=== PATIENT | female | born 1940 | race Caucasian/White ===

== ENCOUNTER 2022-02-13 12:19 | Emergency (ER) | payer MEDICARE, SELFPAY ==
--- NOTE | ~2022-02-13 | XR_ITS ---
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 Comparison: None available. RESULT: Lines, tubes, and devices: None. Lungs and pleura: Mild reticulonodular opacities with cuffing. Cardiomediastinal silhouette: Stable. Moderate hiatal hernia. Calcified granulomas. Other: No acute osseous or upper abdominal finding. IMPRESSION: Pulmonary opacities may represent bronchiolitis, as can be seen with atypical infection, asthma, aspi ration, and small airways disease. Reviewed, dictated and finalized at location K. STOS REMOVAL SUPERVISOR IMPRESSION: Pulmonary opacities may represent bronchiolitis, as can be seen with atypical i nfection, asthma, aspiration, and small airways disease.
[2022-02-13 12:50] VITALS: BP 144/59; PULSE 79; RESP 20; TEMP 37.1; O2SAT 97
--- NOTE | 2022-02-13 14:28 | ED.GENADULT ---
HPI - General Adult General Chief complaint: Upper Respiratory Infection Stated complaint: Cough Source: patient Mode of arrival: ambulatory Limitations: no limitations History of Present Illness HPI narrative: Patient presents for evaluation of cough since last Sunday. She denies any fever, chills, nausea, vomiting, diarrhea, body aches, shortness of breath or chest pain. Her was recently diagnosed with bronchitis. No personal history of COVID. She does not smoke. No additional complaints or concerns. Related Data Home Medications Medication Instructions Recorded Confirmed acetaminophen 500 mg capsule 500 mg PO Q6H PRN 10/28/21 11/17/21 budesonide-formoterol HFA 80 2 puff inhalation Q12H 10/28/21 11/17/21 mcg-4.5 mcg/actuation aerosol inhaler (Symbicort) cholecalciferol (vitamin D3) 50 50 mcg PO DAILY 10/28/21 11/17/21 mcg (2,000 unit) capsule glucosamine sulfate 2KCl 1,000 mg 1,000 mg PO BID 10/28/21 11/17/21 tablet (Glucosamine Relief) multivitamin-ferrous 1 tablet PO DAILY 10/28/21 11/17/21 fumarate-folic acid 18 mg-400 mcg tablet (Centrum) omega 8-wtb-axz-fish oil 300 1 cap PO DAILY 10/28/21 11/17/21 mg-1,000 mg capsule (Fish Oil) pravastatin 20 mg tablet 20 mg PO DAILY 10/28/21 11/17/21 famotidine 20 mg tablet 20 mg PO DAILY 11/08/21 11/17/21 Allergies Allergy/AdvReac Type Severity Reaction Status Date / Time Penicillins Allergy Unknown Hives Verified 11/17/21 14:38 Review of Systems Review of Systems: CONSTITUTIONAL: Denies fever, chills, or sweats. EYES: Denies visual changes, redness, or discharge. ENT: Denies rhinorrhea, congestion, sore throat, or otalgia. CARDIOVASCULAR: Denies chest pain, palpitations, or edema. RESPIRATORY: Reports cough. Denies shortness of breath. GASTROINTESTINAL: Denies abdominal pain, nausea, vomiting, or diarrhea. GENITOURINARY: Denies dysuria or hematuria. SKIN: Denies rash or itching. MUSCULOSKELETAL: Denies back pain, joint pain, or myalgia. NEUROLOGIC: Denies headache, numbness, dizziness, or weakness. PSYCHIATRIC: Denies anxiety or depression. [facility] Past Medical History Medical History Arthritis Back problem Chronic bronchitis GERD (gastroesophageal reflux disease) Heel spur History of hypertension History of stress test (~10/2021) Hyperlipemia Kidney stones Spinal stenosis at L4-L5 level Trochanteric bursitis, left hip Surgical History Surgical History H/O cataract extraction H/O right knee surgery History of appendectomy History of back surgery History of bunionectomy History of carpal tunnel release History of dental surgery Family History Family History Father Myocardial infarction Mother Arthritis Social History Social History Smoking status: Never smoker Alcohol intake: never Substance use: never Substance use type: does not use Living arrangements: with family Gender identity (if verbalized by the patient): Female Sexual Orientation (if Verbalized by the Patient): Straight or Heterosexual Spiritual care concerns: No Exam Narrative: GENERAL: Well-appearing, well-nourished, and in no acute distress. HEAD: Normocephalic, atraumatic. EYES: PERRLA and EOMI. ENT: Nares clear, no rhinorrhea or epistaxis. Mucous membranes moist. Oropharynx without tonsillar hypertrophy exudate or other lesions. Bilateral TMs pearly hannah nonbulging NECK: Supple. No adenopathy or masses. No carotid bruits or JVD CHEST: Rales noted and right lung davila posteriorly. Cough present on exam. HEART: Regular rate and rhythm. No murmur heard. Normal peripheral pulses. ABDOMEN: Soft, nontender, nondistended, normal active bowel sounds. EXTREMITIES: Normal range
== END 2022-02-13 15:11 | disposition home or self-care (01) ==
PROVIDERS: Emergency Provider Nurse Practitioner; PCP Family Medicine
DX: J18.9 Pneumonia, unspecified organism (principal); Z20.822 Contact with and (suspected) exposure to COVID-19; M19.90 Unspecified osteoarthritis, unspecified site; K21.9 Gastro-esophageal reflux disease without esophagitis; I10 Essential (primary) hypertension; E78.5 Hyperlipidemia, unspecified; M48.061 Spinal stenosis, lumbar region without neurogenic claudication
CPT/HCPCS: 71046; 87426; 87804; 99213; C9803; G0463

== ENCOUNTER 2022-09-11 12:17 | Outpatient (CLI) | payer MEDICARE, SELFPAY ==
[2022-09-11 13:07] LABS: Hematocrit 39.8 % (37.0-47.0); Hemoglobin 12.6 g/dL (12.0-15.0)
[2022-09-11 13:19] LABS: Albumin Level 4.2 g/dL (3.5-5.1); Estimated Glomerular Filt Rate > 60; Glucose 90 mg/dL (65-110)
== END 2022-09-11 12:18 | disposition home or self-care (01) ==
PROVIDERS: PCP Family Medicine; Visit Provider Orthopaedic Surgery
DX: K21.9 Gastro-esophageal reflux disease without esophagitis (principal); M17.12 Unilateral primary osteoarthritis, left knee; E78.5 Hyperlipidemia, unspecified; Z86.79 Personal history of other diseases of the circulatory system
CPT/HCPCS: 36415; 82040; 82565; 82947; 85014; 85018

== ENCOUNTER 2022-10-25 11:50 | Outpatient (CLI) | payer MEDICARE, SELFPAY ==
[2022-10-25 13:03] LABS: Basophils Absolute Auto 0.1 K/mm3 (0.0-0.1); Basophils Percent Auto 0.7 % (0.2-1.2); Eosinophils Absolute Auto 0.2 K/mm3 (0-0.3); Eosinophils Percent Auto 2.5 % (0-4.4); Hematocrit 40.4 % (37.0-47.0); Hemoglobin 12.8 g/dL (12.0-15.0); Immature Granulocyte Absolute 0.02 K/mm3 (0.00-0.031); Immature Granulocyte Percent A 0.3 % (0-0.5); Lymphocytes Absolute Auto 2.02 K/mm3 (0.9-3.2); Lymphocytes Percent Auto 26.8 % (18.3-44.2); Mean Corpuscular HGB Conc 31.7 g/dl (32-36); Mean Corpuscular Hemoglobin 31.1 pg (26-34); Mean Corpuscular Volume 98.3 fl (80-100); Mean Platelet Volume 10.1 fl (7.4-10.4); Monocytes Absolute Auto 0.7 K/mm3 (0.1-0.6); Monocytes Percent Auto 8.9 % (2.6-8.5); Neutrophils Absolute Auto 4.6 K/mm3 (1.3-6.7); Neutrophils Percent Auto 60.8 % (45.5-73.1); Platelet Count Result 351 k/mm3 (150-375); Red Blood Count 4.11 M/mm3 (4.2-5.4); Red Cell Distribution Width 12.9 % (11.5-14.5); White Blood Count 7.6 K/mm3 (4.5-10.0)
[2022-10-25 13:11] LABS: Albumin Level 4.1 g/dL (3.5-5.1); Estimated Glomerular Filt Rate > 60; Glucose 87 mg/dL (65-110)
[2022-10-25 13:13] LABS: Urine Cotinine NEGATIVE
[2022-10-25 13:16] LABS: Hemoglobin A1C 5.7 % (<5.7)
== END 2022-10-25 11:51 | disposition home or self-care (01) ==
LOC: ANHSURGERY 11:54
PROVIDERS: PCP Family Medicine; Visit Provider Orthopaedic Surgery
DX: M17.12 Unilateral primary osteoarthritis, left knee (principal); Z01.818 Encounter for other preprocedural examination
CPT/HCPCS: 80307; 82040; 82565; 82947; 83036; 85025; 87081

== ENCOUNTER 2022-11-20 01:08 | Day surgery (SDC) | payer MEDICARE, SELFPAY ==
--- NOTE | 2022-10-25 11:51 | PC.NURSE ---
PRE-OP INSTRUCTIONS, PLEASE READ CAREFULLY Report to the Outpatient Waiting Room, entrance under the green pavilion located off [facility], at time _1000_ on date _11/20/22_. Planned Procedure Time: _1200_. PACK A SMALL OVERNIGHT BAG AND LEAVE IN THE CAR ALONG WITH YOUR WALKER Time changes happen often and if your time is changed the preop area will call you the afternoon before. - You and your visitor will be asked to self-screen and do not enter if you have any COVID symptoms. - A mask is optional within the hospital at this time. -VISITING HOURS 8AM-8PM Patients may have clear liquids (water, carbonated beverages, clear teas, apple juice) until 3 hours prior to surgery (0900 AM) with a maximum of 20 ounces. - No food from midnight until time of surgery Take the following medications with a SIP of water the morning of surgery: _INHALER IF NEEDED_ DO NOT STOP ANY OF YOUR OTHER PRESCRIPTION MEDICATIONS PRIOR TO SURGERY ?EXCEPT THE FOLLOWING Medications to discontinue per ANESTHESIA - _MULTIVITAMINS, SUPPLEMENTS 3 DAYS PRIOR TO SURGERY, Date to take last dose 11/16/22_ Please no make-up, nail spanish, hairspray, perfume, deodorant, or body powder the day of surgery. No jewelry (including any body piercings) or valuables the day of surgery, leave them at home. Please take a shower or bath the night before, or the morning of, surgery with an antibacterial soap. Wear comfortable, loose fitting clothing. - Jewelry must be removed prior to entering the operating room. Rings and piercings that are not removed may be cut off. - The hospital will not accept responsibility for valuables. - Please leave all valuables, including medications, at home the day of surgery. If you are going home after surgery, a licensed charter and tour bus driver must drive you home. - NO public transportation without another adult if you receive anesthesia. - We recommend that an adult stay with you for 24 hours following discharge. - We also recommend that you do not drive, make important decision, drink alcoholic beverages, or take any drugs that were not prescribed by your health care provider for at least 24 hours after your discharge time. Follow any additional instructions given to you from your surgeon. TOTAL JOINT CLASS 11/01/22 @ [address] [place] [address] - LOWER LEVEL If you or anyone in your household have experienced Covid symptoms in the past week, please notify your surgeon or the nurse liaison at the phone number below for possible testing. Instructions given to _PATIENT_and asked if any additional questions and then verbalized understanding. Patient advised to call surgeon office or pre surgery nurse liaison [phone] if any additional questions.
[2022-10-25 12:08] VITALS: BP 154/62; PULSE 80; RESP 18; TEMP 36.8; O2SAT 97; BMI 31.8
[2022-11-20] VITALS (17 sets, daily range): BP systolic 129–171; BP diastolic 54–76; PULSE 61–88; RESP 11–20; TEMP 36.2–36.9; O2SAT 97–100
--- NOTE | ~2022-11-20 | XR_ITS ---
EXAMINATION: [id number] DATE: 11/20/2022 15:10 INDICATION: Postoperative evaluation following left total knee arthroplasty. TECHNIQUE: Anteroposterior and lateral views of the left knee were obtained. COMPARISON: None. FINDINGS: Left total knee arthroplasty without patellar resurfacing appears well seated and in near anatomic al ignment. No fractures identified. Expected postoperative subcutaneous and intra-articular gas. IMPRESSION: 1. Left total knee arthroplasty, negative for postoperative purposes. Reviewed, dictated and finalized at location A.
--- NOTE | 2022-11-20 08:16 | WPDHPUPDATE1 ---
History and Physical Update Update Date/Time: 11/20/22 08:16 History and Physical has been reviewed, including an updated exam of the patient. There are NO changes in the patient's condition. Risks, benefits, and alternatives have been discussed and questions answered. Patient agrees to proceed with procedure.
[2022-11-20] MEDS: LACTATED RINGERS 1,000 ML 30 ML IV CONT ×2 (10:30→14:37)
[2022-11-20] MEDS: ACETAMINOPHEN 500 MG TABLET 1000 MG PO ×3 (11:00→22:41)
--- NOTE | 2022-11-20 11:43 | WPDANESEPPF ---
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 Patient Data Age: 81 Gender: F Height: 1.52 m Weight: 73.6 kg Last Vital Signs Temp 36.9 C 11/20/22 10:45 Pulse 72 11/20/22 10:45 Resp 16 11/20/22 10:45 BP 170/63 H 11/20/22 10:45 Pulse Ox 100 11/20/22 10:45 O2 Del Method Room Air 11/20/22 10:45 Allergies Allergy/AdvReac Type Severity Reaction Status Date / Time Penicillins Allergy Unknown Hives/RASH Verified 11/20/22 10:53 Home Medications Medication Instructions Recorded Confirmed Type glucosamine sulfate 2KCl 1,000 mg 1,000 mg PO BID 10/28/21 10/25/22 History tablet (Glucosamine Relief) multivitamin-ferrous 1 tablet PO DAILY 10/28/21 10/25/22 History fumarate-folic acid 18 mg-400 mcg tablet (Centrum) omega 0-wet-cno-fish oil 300 1 cap PO DAILY 10/28/21 10/25/22 History mg-1,000 mg capsule (Fish Oil) pravastatin 20 mg tablet 20 mg PO DAILY 10/28/21 10/25/22 History famotidine 20 mg tablet 20 mg PO DAILY 11/08/21 10/25/22 History budesonide-formoterol HFA 80 2 puff inhalation Q12H PRN Wheezing 04/27/22 10/25/22 History mcg-4.5 mcg/actuation aerosol inhaler (Symbicort) aspirin 81 mg tablet,delayed 81 mg PO DAILY 14 days #14 tabs 11/20/22 Rx release meloxicam 15 mg tablet 15 mg PO DAILY #30 tabs 11/20/22 Rx oxycodone-acetaminophen 5 mg-325 1 - 2 tablet PO Q4-6H PRN pain #30 11/20/22 Rx mg tablet tabs prednisone 5 mg tablet 5 mg PO DAILY 3 weeks #21 tabs 11/20/22 Rx Laboratory Tests 11/20/22 10:33 Blood Type A Positive Antibody Screen Negative Patient hx anesthesia problems: none Family hx anesthesia problems: none Results Review: All pre-operative results and documents have been reviewed as part of the pre-operative evaluation. [facility] Past Medical History Medical History Arthritis Back problem Chronic bronchitis GERD (gastroesophageal reflux disease) Heel spur History of hypertension History of stress test (~10/2021) Hyperlipemia Kidney stones Spinal stenosis at L4-L5 level Trochanteric bursitis, left hip Surgical History Surgical History H/O cataract extraction H/O right knee surgery History of appendectomy History of back surgery History of bunionectomy History of carpal tunnel release History of dental surgery Family History Family History Father Myocardial infarction Mother Arthritis Social History Social History Smoking status: Never smoker Second hand tobacco smoke exposure: No Additional smoking assessment comments: DENIES ALL FORMS OF TOBACCO USE Alcohol intake: never Substance use: never Substance use type: does not use Lack of Transportation: No Lack of Food: Never True Current Housing: I Have Housing Concerned About Future Housing: No Difficulty Paying Gas/Electric Bills: No Difficulty Paying for Meds: No Currently Unemployed: No Education: Bachelor's Degree Difficulty w/ Childcare or Family Care: No Living arrangements: with family Gender identity (if verbalized by the patient): Female Sexual Orientation (if Verbalized by the Patient): Straight or Heterosexual Spiritual care concerns: No Anes - Eval Final PreProcedure Day of Procedure 11/20/22 11:43 Patient weight: obese Heart: regular rate and rhythm Lungs: clear to auscultation Airway: Mallampati scale class II Neurological: alert and oriented Last oral intake: >/= 8 hours ASA classification: III Emergent: no Anesthetic plan: proceed Anesthesia type and kevin
[2022-11-20] MEDS: TRANEXAMIC ACID 1,000MG/ISO100 1,000 MG/100 ML BAG 200 MG IVPB (12:35)
[2022-11-20] MEDS: ceFAZolin 2 GM/D5W 50 ML 2 GM/50 ML BAG IVPB ×2 (12:35→20:30)
[2022-11-20] MEDS: GENTAMICIN BONE CEMENT REFOBACIN 1 EACH TOPICAL (13:19)
--- NOTE | 2022-11-20 14:47 | W.PM.PROC2 ---
Procedure Note - Detailed Date of Procedure 11/20/22 Pre-op Diagnosis primary oa left knee Post-op Diagnosis Same Procedure Performed Total knee arthroplasty, left knee. Surgeon Asael Vance MD [employer] Demi Logan PA-C Anesthesia General and Regional (subsartorial block) Findings Good bone quality. Moderate medial release. Description of Procedure The patient was brought to the operating room. A general anesthetic was administered. The leg was prepped and draped in the usual sterile fashion. The limb was elevated and the tourniquet inflated to 300 mmHg. A longitudinal incision was created along the medial border of the patella and patellar tendon, and a trivector approach to the knee was performed. A moderate release was taken. The knee was then flexed. The osteophytes were carefully removed. The intramedullary guide was placed in the femoral canal. The distal femoral resection was then taken with the oscillating saw. The collateral ligaments were carefully protected. The tibia was carefully exposed. The jig was applied, and the proximal tibia was resected according to preoperative plan. The knee was balanced in extension. Appropriate releases were taken where needed. The anterior cruciate ligament and meniscal remnants were removed. The posterior cruciate ligament was preserved. The patella was denervated, and peripatellar osteophytes removed. The femur was sized and rotation assessed using a combination of gap balancing, posterior referencing, and the AP axis. The 4 in 1 cutting block was used to finish the femoral cuts after equal gaps were assured. The osteophytes were carefully removed from the back of the knee. The knee was copiously irrigated with antibiotic solution periodically throughout the procedure. The meniscal remnants were removed. The spacer block was used to confirm equal flexion and extension gaps. Additional medial needle release performed. The tibia was sized and broached. The bony surfaces were prepared for cementing with pulsatile lavage. The real tibia was cemented into position. The femur was press-fit. The patella was press-fit. Excess cement was carefully removed. Patellar tracking was carefully assessed. Copious irrigation then performed. The wound was closed with #1 Vicryl suture, #2, 2-0, and 3-0 barbed suture, followed by Steri-Strips. A sterile bulky dressing was applied. Meticulous hemostasis was maintained throughout the procedure, and the bipolar cautery device was used. The pain relieving mixture was injected into the periarticular tissues during the procedure. There were no complications. The patient was extubated and brought to the recovery room in stable condition after the application of sterile dressing with Elder bandage. Implants Kris Triathlon knee system, low profile cemented tibia size 2, press-fit cruciate retaining femoral component size 2 ,and an 11 mm cruciate retaining polyethylene insert. Estimated Blood Loss 20 Drains No Pathology None sent Complications No immediate complications Condition Stable Disposition PACU [facility] Billing Surgery - Charge Forward: Surgery Billing
[2022-11-20] MEDS: fentaNYL CITRATE INJ (*CRX) 100 MCG/2 ML VIAL 25 MCG IV PUSH ×6 (15:14→16:06)
--- NOTE | 2022-11-20 15:16 | SUR.PHASEI ---
1515: Simple mask removed.
--- NOTE | 2022-11-20 16:30 | ADMGEN ---
This patient, Katey Bryan, was admitted to Medical Room 250-01. Patient/family oriented to hospital policies and general routines including ID bracelet, bed and alarms, visiting hours, pain management, procedures, bathroom and other care routines, personal items, smoking policy, room service/diet, and visiting hours. Information on how to activate the Rapid Response Team has been discussed. Patient/Family are encouraged to report perceived risks to care and to ask questions if they do not understand what they are told or what they should do.
[2022-11-20] MEDS: SENNA/DOCUSATE SODIUM TABLET 2 TAB PO (17:08)
[2022-11-20] MEDS: ASPIRIN 81 MG ENTERIC TABLET PO (17:08)
[2022-11-20] MEDS: MELOXICAM 7.5 MG TABLET PO (17:08)
[2022-11-20] MEDS: FLUTICASONE/SALMETEROL 45-21 MCG INHALER 1 PUFF 2 PUFF INHALATION (20:02)
[2022-11-20] MEDS: oxyCODONE HCL (*CRX) 5 MG TAB IR PO (20:31)
[2022-11-21 01:56] VITALS: BP 132/48; PULSE 64; RESP 18; TEMP 36.5; O2SAT 96
[2022-11-21] MEDS: ACETAMINOPHEN 500 MG TABLET 1000 MG PO ×2 (04:02→10:09)
[2022-11-21] MEDS: ceFAZolin 2 GM/D5W 50 ML 2 GM/50 ML BAG IVPB ×2 (04:02→12:00)
[2022-11-21 05:53] LABS: Basophils Percent Auto 0.3 % (0.2-1.2); Eosinophils Percent Auto 0.1 % (0-4.4); Hematocrit 32.5 % (37.0-47.0); Hemoglobin 10.5 g/dL (12.0-15.0); Immature Granulocyte Absolute 0.05 K/mm3 (0.00-0.031); Immature Granulocyte Percent A 0.4 % (0-0.5); Lymphocytes Absolute Auto 1.36 K/mm3 (0.9-3.2); Lymphocytes Percent Auto 12.1 % (18.3-44.2); Mean Corpuscular HGB Conc 32.3 g/dl (32-36); Mean Corpuscular Hemoglobin 31.4 pg (26-34); Mean Corpuscular Volume 97.3 fl (80-100); Mean Platelet Volume 10.2 fl (7.4-10.4); Monocytes Absolute Auto 0.8 K/mm3 (0.1-0.6); Monocytes Percent Auto 7.4 % (2.6-8.5); Neutrophils Percent Auto 79.7 % (45.5-73.1); Platelet Count Result 286 k/mm3 (150-375); Red Blood Count 3.34 M/mm3 (4.2-5.4); Red Cell Distribution Width 12.7 % (11.5-14.5); White Blood Count 11.3 K/mm3 (4.5-10.0)
[2022-11-21 05:56] VITALS: BP 132/49; PULSE 59; RESP 18; TEMP 36.8; O2SAT 94
[2022-11-21 06:06] LABS: Anion Gap 1 mmol/L (8-16); Blood Urea Nitrogen 19 mg/dL (7-17); Calcium 8.7 mg/dL (8.4-10.2); Carbon Dioxide 29 mmol/L (22-30); Chloride 105 mmol/L (98-107); Estimated CRCL calculation 38 ml/min; Estimated Glomerular Filt Rate 60; Glucose 108 mg/dL (65-110); Potassium 4.4 mmol/L (3.4-5.0); Sodium 135 mmol/L (137-145)
[2022-11-21] MEDS: ASPIRIN 81 MG ENTERIC TABLET PO (08:51)
[2022-11-21] MEDS: SENNA/DOCUSATE SODIUM TABLET 2 TAB PO (08:51)
[2022-11-21] MEDS: predniSONE 5 MG TABLET PO (08:51)
[2022-11-21] MEDS: polyethylene glycoL 3350 17 GM POWD.PACK PO (08:51)
[2022-11-21] MEDS: PRAVASTATIN SODIUM 20 MG TABLET PO (08:51)
[2022-11-21] MEDS: oxyCODONE HCL (*CRX) 5 MG TAB IR PO (08:53)
[2022-11-21] MEDS: MELOXICAM 7.5 MG TABLET PO (08:54)
[2022-11-21] MEDS: FAMOTIDINE 20 MG TABLET PO (08:55)
[2022-11-21] MEDS: FLUTICASONE/SALMETEROL 45-21 MCG INHALER 1 PUFF 2 PUFF INHALATION (09:34)
[2022-11-21 09:43] VITALS: O2SAT 92
--- NOTE | 2022-11-21 09:45 | PM.DS ---
DS: Admitting Diagnosis Discharge Date 11/21/22 Admitting Diagnosis OA knee Left DS: Discharge Diagnosis Discharge Diagnosis (1) Status post total left knee replacement: Code(s): Z96.652 - Presence of left artificial knee joint Status: Acute Assessment and Plan: Postop day 1: Left total knee arthroplasty. Patient tolerated procedure well. No complications. Pain manageable with pain medication. No numbness or tingling. We had a lengthy discussion regarding postoperative wound care, limitations, expectations, and exercises. Patient shows good understanding. She has had initial physical therapy and is tolerating it well. DVT prophylaxis: 81 mg baby aspirin b.i.d. for 14 days. Pain medication: Percocet. Patient has followup appointment with Dr. Vance in 3 weeks. DS: Summary Hospital Course Reason for hospitalization: Total knee arthroplasty Hospital Course: Patient tolerated procedure well. Has had initial PT/OT. Status at Discharge Functional status at discharge: uses cane/walker Overall status at discharge: patient is progressing back to baseline Time Spent with Patient Time attestation: Total time spent providing and/or coordinating discharge services: Exam Narrative: 81-year-old overweight female. Resting comfortably in chair. Alert and oriented x3. No acute distress. Wearing compression socks bilaterally. Dressing dry and intact without drainage. Mild swelling. No ecchymosis. No erythema. No hematoma. Range of motion limited due to pain. Calf nontender. Neurologic status intact. No varicosities. Distal pulses palpable. DS: Data Data Completed and Pending Labs on day of discharge: Labs from last 24 hours 11/21/22 11/20/22 05:36 10:33 WBC 11.3 H RBC 3.34 L Hgb 10.5 L Hct 32.5 L MCV 97.3 MCH 31.4 MCHC 32.3 RDW 12.7 Plt Count 286 MPV 10.2 Immature Gran % (Auto) 0.4 Neut % (Auto) 79.7 H Lymph % (Auto) 12.1 L Blanco % (Auto) 7.4 Eos % (Auto) 0.1 Baso % (Auto) 0.3 Lymph # (Auto) 1.36 Blanco # (Auto) 0.8 H Eos # (Auto) 0.0 Baso # (Auto) 0.0 Abs Immat Gran (auto) 0.05 H Absolute Neuts (auto) 9.0 H Absolute Nucleated RBC 0.0 Nucleated RBC % 0.0 Sodium 135 L Potassium 4.4 Chloride 105 Carbon Dioxide 29 Anion Gap 1 L BUN 19 H Creatinine 0.90 Estim Creat Clear Calc 38 Estimated GFR 60 Glucose 108 Calcium 8.7 Blood Type A Positive Antibody Screen Negative Discharge Plan Discharge Patient Disposition: Home, Self-Care Discharge Instructions: See green instruction sheets Stand Alone Forms: General Discharge Instructions Follow-up/Referrals: Demi Logan PA [Physician Dial Refinisher] - Discharge Medications: New aspirin 81 mg tablet,delayed release (DR/EC) 81 mg PO DAILY 14 Days Qty: 14 0RF meloxicam 15 mg tablet 15 mg PO DAILY Qty: 30 0RF Rx Instructions: Cut in half. Take 1/2 in morning and 1/2 at night. Take with food. Stop if stomach upset. prednisone 5 mg tablet 5 mg PO DAILY 21 Days Qty: 21 0RF oxycodone-acetaminophen 5-325 mg tablet 1 - 2 tablet PO Q4-6H MDD 8 PRN (Reason: pain) Qty: 30 0RF Continued glucosamine sulfate 2KCl [Glucosamine Relief] 1,000 mg tablet 1,000 mg PO BID Rx Instructions: administer with meals Centrum 18-400 mg-mcg tablet 1 tablet PO DAILY omega 2-iyw-viq-fish oil [Fish Oil] 300-1,000 mg capsule 1 cap PO DAILY pravastatin 20 mg tablet 20 mg PO DAILY budesonide-formoterol [Symbicort] 80-4.5 mcg/actuation HFA aerosol inhaler 2 puff inhalation Q12H PRN (Reason: Wheezing) famotidine 20 mg tablet 20 mg PO DAILY
--- NOTE | 2022-11-21 12:49 | WPDANESPN ---
Anes - Prog Note Post-Op Date/Time: 11/21/22 12:49 Cardiovascular status: normal Respiratory status: normal Airway patency: baseline Mental status: baseline Post-Op hydration status: normal Vital Signs: Last Vital Signs Temp 98.2 F 11/21/22 05:56 Pulse 59 L 11/21/22 05:56 Resp 18 11/21/22 05:56 BP 132/49 L 11/21/22 05:56 Pulse Ox 92 11/21/22 09:43 O2 Del Method Room Air 11/21/22 10:15 O2 Flow Rate 1 11/20/22 18:00 Pain Score (VAS): 2 I/O: Intake & Output 11/20/22 11/21/22 11/21/22 23:59 07:59 15:59 Intake Total 1070 50 240 Output Total 225 Balance 845 50 240 Laboratory Tests 11/21/22 05:36 11/21/22 05:36 11/21/22 05:36 WBC 11.3 H RBC 3.34 L Hgb 10.5 L Hct 32.5 L MCV 97.3 MCH 31.4 MCHC 32.3 RDW 12.7 Plt Count 286 MPV 10.2 Immature Gran % (Auto) 0.4 Neut % (Auto) 79.7 H Lymph % (Auto) 12.1 L Villalba % (Auto) 7.4 Eos % (Auto) 0.1 Baso % (Auto) 0.3 Lymph # (Auto) 1.36 Villalba # (Auto) 0.8 H Eos # (Auto) 0.0 Baso # (Auto) 0.0 Abs Immat Gran (auto) 0.05 H Absolute Neuts (auto) 9.0 H Absolute Nucleated RBC 0.0 Nucleated RBC % 0.0 Sodium 135 L Potassium 4.4 Chloride 105 Carbon Dioxide 29 Anion Gap 1 L BUN 19 H Creatinine 0.90 Estim Creat Clear Calc 38 Estimated GFR 60 Glucose 108 Calcium 8.7 Post-procedural complaints: none Patient Feedback: Patient satisfied with anesthetic care.
== END 2022-11-21 12:50 | disposition home or self-care (01) ==
LOC: ANHSURGERY 09:58 → ANH2MED 16:15
PROVIDERS: Physician Assistant Surgical; PCP Family Medicine; Visit Provider Orthopaedic Surgery
PROC: (CPT 27447; principal; 2022-11-20 12:00)
DX: M17.12 Unilateral primary osteoarthritis, left knee (principal); I10 Essential (primary) hypertension; E78.00 Pure hypercholesterolemia, unspecified; K21.9 Gastro-esophageal reflux disease without esophagitis; Z79.51 Long term (current) use of inhaled steroids; Z79.82 Long term (current) use of aspirin; Z79.891 Long term (current) use of opiate analgesic; E66.9 Obesity, unspecified; Z68.31 Body mass index [BMI] 31.0-31.9, adult
CPT/HCPCS: 27447; 36415; 73560; 80048; 80307; 82040; 82565; 82947; 83036; 85025; 86850; 86900; 86901; 87081; 94640; 97110; 97161; 97165; 97530; 97535; A9270; C1713; C1776; J0171; J0690; J1170; J1885; J2250; J2270; J2795; J3010; J7120; J7512